=== PATIENT | female | born 1995 | race Caucasian/White ===

== ENCOUNTER 2018-01-05 14:17 | Emergency (ER) | payer OTHER | END 2018-01-05 15:14 | disposition home or self-care (01) | LOC: ERS 14:17 | DX: R51 Headache (principal); V43.52XA Car driver injured in collision with other type car in traffic accident, initial encounter | CPT/HCPCS: 99283 ==

== ENCOUNTER 2018-01-06 18:37 | Emergency (ER) | payer OTHER ==
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
== END 2018-01-06 20:29 | disposition home or self-care (01) ==
LOC: ERS 18:37
DX: F07.81 Postconcussional syndrome (principal)
CPT/HCPCS: 70450